=== PATIENT | female | born 1970 | race Caucasian/White ===

== ENCOUNTER 2017-06-24 18:17 | Emergency (ER) | payer BC ==
--- NOTE | 2017-06-24 19:58 | UC ---
Skin Complaint HPI - HPI Summary HPI Summary: slice to inside of right index finger - History of Current Complaint Chief Complaint: UCLaceration Time Seen by Provider: 06/24/17 19:51 Stated Complaint: FINGER LAC Hx Obtained From: Patient ?: No Onset/Duration: Sudden Onset Skin Exposure Onset/Duration: Minutes Ago Timing: Constant Onset Severity: Mild Current Severity: Mild Location: Discrete Aggravating: Nothing Alleviating: Nothing Associated Signs & Symptoms: Positive: Negative - Allergy/Home Medications Allergies/Adverse Reactions: Allergies Allergy/AdvReac Type Severity Reaction Status Date / Time Amoxicillin [From Augmentin] Allergy Severe N/V Verified 06/24/17 18:34 Clavulanic Acid Allergy Severe N/V Verified 06/24/17 18:34 [From Augmentin] DIPTHERIA Allergy Severe ARM Uncoded 06/24/17 18:34 SWELLING, FEVER, NAUSEA, SKIN WELT Home Medications: Home Medications Lisinopril [Zestril 10 MG-] 20 mg PO DAILY 06/24/17 [History Confirmed 06/24/17] Review of Systems Constitutional: Negative Skin: Other - laceration right index finger Eyes: Negative ENT: Negative Respiratory: Negative Cardiovascular: Negative Gastrointestinal: Negative Genitourinary: Negative Motor: Negative Neurovascular: Negative Musculoskeletal: Negative Neurological: Negative Psychological: Negative All Other Systems Reviewed And Are Negative: Yes PMH/Surg Hx/FS Hx/Imm Hx Previously Healthy: No Endocrine History: Hypothyroidism Cardiovascular History: Hypertension - Surgical History Surgical History: Yes Surgery Procedure, Year, and Place: HYSTERECTOMY, VEIN STRIPPING, UTERINE ABLATION, TUBAL LIGATION, CHOLECYSTECTOMY - Family History Known Family History: Positive: None - Social History Occupation: Employed Full-time Lives: With Family Alcohol Use: Occasionally Substance Use Type: None Smoking Status (MU): Former Smoker - Immunization History Most Recent Tetanus Shot: UNSURE Physical Exam Triage Information Reviewed: Yes Appearance: Well-Appearing, No Pain Distress, Well-Nourished Vital Signs: Initial Vital Signs Temp 97.5 F 06/24/17 18:29 Pulse 80 06/24/17 18:29 Resp 18 06/24/17 18:29 BP 174/99 06/24/17 18:29 Pulse Ox 100 06/24/17 18:29 Vital Signs Reviewed: Yes Eye Exam: Normal Eyes: Positive: Conjunctiva Clear ENT Exam: Normal ENT: Positive: Normal ENT inspection, Hearing grossly normal. Negative: Nasal congestion, Nasal drainage, Trismus, Muffled/hoarse voice Dental Exam: Normal Neck exam: Normal Neck: Positive: Supple, Nontender Respiratory Exam: Normal Respiratory: Positive: Chest non-tender, No respiratory distress, No accessory muscle use Cardiovascular Exam: Normal Cardiovascular: Positive: RRR, Brisk Capillary Refill Musculoskeletal Exam: Normal Musculoskeletal: Positive: Strength Intact, ROM Intact, No Edema Neurological Exam: Normal Neurological: Positive: Alert, Muscle Tone Normal Psychological Exam: Normal Psychological: Positive: Normal Response To Family Skin: Positive: Other - right index finger laceration Laceration Repair - Laceration Repair 1 Description: Linear Laceration Size After Repair: Length (cm) - 1, Width (mm) - 1 Modified For Repair: No Cleansing Completed Via Routine Prep: Yes Irrigation With Pressure Irrigation Device: Yes Closure Material: Skin Adhesive, SteriStrips Course/Dx - Course Course Of Treatment: follow bp with pcp, steri and glue instuctions, recheck prn - Differential Diagnoses - Skin Complaint Differential Diagnoses: Abscess, Other - laceration - Diagnoses Provider Diagnoses: laceration right index finger suture and steri repair, Hypertension in poor control Discharge - Discharge Plan Condition: Stable Disposition: HOME Patient Education Materials: Finger Laceration (ED), Hypertension (ED), Skin Adhesive Care (ED), Steristrips (ED) Referrals: [facility] [Outside] - 2 Weeks Additional Instructions: re check your blood pressure with you primary care provider in the next 1-2 weeks
[2017-06-24] MEDS ORDERED: Benzoin Compound STICK TOPICAL ONE (19:59)
[2017-06-24 20:39] VITALS: BP 186/112
== END 2017-06-24 20:35 | disposition home or self-care (01) ==
LOC: UCEAST 18:17
DX: S61.210A Laceration without foreign body of right index finger without damage to nail, initial encounter (principal); W45.8XXA Other foreign body or object entering through skin, initial encounter; Y93.9 Activity, unspecified; Y92.9 Unspecified place or not applicable; I10 Essential (primary) hypertension; Z90.710 Acquired absence of both cervix and uterus; Z90.49 Acquired absence of other specified parts of digestive tract; Z88.1 Allergy status to other antibiotic agents; Z88.7 Allergy status to serum and vaccine; E03.9 Hypothyroidism, unspecified
CPT/HCPCS: 12001; 12002; 99211; G0463